=== PATIENT | male | born 1940 | race Caucasian/White ===

== ENCOUNTER 2020-12-08 18:09 | Observation (INO) ==
[2020-12-08 19:03] LABS: Basophils % 0.2 %; Hematocrit 42.8 % (37.5-50.1); Hemoglobin 13.7 g/dL (12.9-16.9); Immature Granulocytes % 0.5 % (0-4); Lymphocytes # 0.4 K/mcL (0.6-4.6); Lymphocytes % 3.3 %; Mean Corpuscular Hemoglobin 27.6 pg (28.0-33.3); Mean Corpuscular Volume 86.3 fL (83.0-100.0); Mean Platelet Volume 12.8 fL (9.4-12.4); Monocytes # 0.3 K/mcL (0.0-1.3); Monocytes % 1.9 %; Neutrophils # 12.5 K/mcL (1.6-8.9); Platelet Count 105 K/mcL (140-400); Red Blood Count 4.96 M/mcL (4.19-5.50); Red Cell Distribution Width 13.7 % (11.5-14.5); Segmented Neutrophils % 94.1 %; White Blood Count 13.3 K/mcL (4.3-11.1)
[2020-12-08 19:25] LABS: Alanine Aminotransferase 11 Units/L (7-52); Albumin 3.9 g/dL (3.5-5.7); Alkaline Phosphatase 83 Units/L (34-104); Aspartate Amino Transferase 21 Units/L (13-39); BUN/Creatinine Ratio 33 (6-26); Bilirubin,Direct 0.1 mg/dL (0.0-0.2); Bilirubin,Indirect 0.3 mg/dL (0.0-1.0); Bilirubin,Total 0.4 mg/dL (0.3-1.0); Blood Urea Nitrogen 44 mg/dL (8-23); Calcium 9.5 mg/dL (8.6-10.3); Carbon Dioxide 24 mEq/L (23-29); Chloride 103 mEq/L (98-107); Ethanol < 10 mg/dL (Less than 10); Glucose 103 mg/dL (70-105); Osmolality,Calculated 293 (280-300); Potassium 4.1 mEq/L (3.5-5.1); Sodium 136 mEq/L (136-145); Total Protein 7.9 g/dL (6.4-8.9); Troponin I 0.03 ng/mL (< 0.04); eGFR For African Americans > 60 (> 60); eGFR For Non-African Americans 51 (> 60)
[2020-12-08 20:54] LABS: Bilirubin,Urine Negative (Negative); Blood,Urine Negative (Negative); Clarity,Urine Clear (Clear); Color,Urine Light-Yellow (Yellow); Glucose,Urine (UA) Normal (Normal); Hyaline Casts,Urine Few per lpf (None Seen); Ketones,Urine Negative (Negative); Leukocyte Esterase,Urine Negative (Negative); Mucus,Urine Few per lpf (None-Few); Nitrite,Urine Negative (Negative); Protein,Urine 30 mg/dL (Neg-Trace); RBC,Urine 0-3 per hpf (0-3); Specific Gravity,Urine 1.025 (1.010-1.025); Squamous Epithelial Cell,Urine Few per hpf (None-Few); Urobilinogen,Urine Normal (Normal); WBC,Urine 0-3 per hpf (0-3)
[2020-12-08 20:56] LABS: Amphetamine Screen,Urine Negative ng/mL (Cutoff=1000); Barbiturate Screen,Urine Negative ng/mL (Cutoff=200); Benzodiazepines Screen,Urine Negative ng/mL (Cutoff=200); Cannabinoid Screen,Urine Negative ng/mL (Cutoff = 50); Cocaine Screen,Urine Negative ng/mL (Cutoff= 300); Opiate Screen,Urine Negative ng/mL (Cutoff=300); Phencyclidine Screen,Urine Negative ng/mL (Cutoff=25)
[2020-12-08] MEDS ORDERED: Ondansetron 4 MG/2 ML VIAL IVP PRN (21:51)
[2020-12-08] MEDS ORDERED: Naloxone 0.4 MG/ML INJ IVP PRN (21:51)
[2020-12-08] MEDS ORDERED: 0.9 % Sodium Chloride 1,000 ML IVC SCH (22:00)
[2020-12-09 03:49] LABS: Basophils % 0.1 %; Hematocrit 39.3 % (37.5-50.1); Hemoglobin 12.7 g/dL (12.9-16.9); Immature Granulocytes % 0.4 % (0-4); Immature Platelets 14.6 % (1.1-6.1); Lymphocytes # 0.6 K/mcL (0.6-4.6); Mean Corpuscular HGB Conc 32.3 g/dL (31.6-35.5); Mean Corpuscular Hemoglobin 27.1 pg (28.0-33.3); Mean Platelet Volume 12.7 fL (9.4-12.4); Monocytes # 0.2 K/mcL (0.0-1.3); Monocytes % 1.6 %; Neutrophils # 10.4 K/mcL (1.6-8.9); Platelet Count 92 K/mcL (140-400); Red Blood Count 4.68 M/mcL (4.19-5.50); Red Cell Distribution Width 13.7 % (11.5-14.5); Segmented Neutrophils % 92.9 %; White Blood Count 11.2 K/mcL (4.3-11.1)
[2020-12-09 03:51] LABS: Prothrombin Time 23.2 Seconds (9.4-12.1)
[2020-12-09 04:10] LABS: BUN/Creatinine Ratio 37 (6-26); Blood Urea Nitrogen 44 mg/dL (8-23); Calcium 9.4 mg/dL (8.6-10.3); Carbon Dioxide 21 mEq/L (23-29); Chloride 106 mEq/L (98-107); Glucose 117 mg/dL (70-105); Magnesium 1.8 mg/dL (1.6-2.6); Osmolality,Calculated 294 (280-300); Potassium 4.1 mEq/L (3.5-5.1); Sodium 136 mEq/L (136-145); eGFR For African Americans > 60 (> 60); eGFR For Non-African Americans 58 (> 60)
[2020-12-09] MEDS ORDERED: *HR* Heparin 5,000 UNIT/ML VIAL SQ SCH (06:00)
[2020-12-09] MEDS ORDERED: Warfarin perPT PO PRN (18:00)
[2020-12-09] MEDS ORDERED: *HR* Warfarin 2 MG TABLET PO ONE (18:00)
[2020-12-09] MEDS: Famotidine 20 MG TABLET PO SCH (18:36)
[2020-12-09] MEDS: levETIRAcetam 250 MG TABLET PO SCH (18:37)
[2020-12-09] MEDS: QUEtiapine Fumarate 25 MG TABLET PO SCH (20:48)
[2020-12-09] MEDS: Latanoprost 2.5 ML BOTTLE BOTH EYES SCH (20:50)
[2020-12-10 01:22] LABS: Basophils % 0.1 %
[2020-12-10 01:24] LABS: Hematocrit 38.8 % (37.5-50.1); Hemoglobin 12.5 g/dL (12.9-16.9); Immature Granulocytes % 0.6 % (0-4); Immature Platelets 13.6 % (1.1-6.1); Lymphocytes # 0.8 K/mcL (0.6-4.6); Lymphocytes % 7.1 %; Mean Corpuscular HGB Conc 32.2 g/dL (31.6-35.5); Mean Corpuscular Hemoglobin 27.8 pg (28.0-33.3); Mean Corpuscular Volume 86.2 fL (83.0-100.0); Mean Platelet Volume 13.1 fL (9.4-12.4); Monocytes # 0.6 K/mcL (0.0-1.3); Monocytes % 5.5 %; Neutrophils # 9.1 K/mcL (1.6-8.9); Red Cell Distribution Width 13.6 % (11.5-14.5); Segmented Neutrophils % 86.7 %; White Blood Count 10.5 K/mcL (4.3-11.1)
[2020-12-10 01:25] LABS: Platelet Count 75 K/mcL (140-400)
[2020-12-10 01:30] LABS: INR 1.8; Prothrombin Time 20.8 Seconds (9.4-12.1)
[2020-12-10 01:39] LABS: BUN/Creatinine Ratio 39 (6-26); Blood Urea Nitrogen 45 mg/dL (8-23); Calcium 9.2 mg/dL (8.6-10.3); Carbon Dioxide 25 mEq/L (23-29); Chloride 106 mEq/L (98-107); Glucose 102 mg/dL (70-105); Osmolality,Calculated 296 (280-300); Potassium 4.8 mEq/L (3.5-5.1); Sodium 137 mEq/L (136-145); eGFR For African Americans > 60 (> 60); eGFR For Non-African Americans > 60 (> 60)
[2020-12-10 02:04] LABS: Folate 8.2 ng/mL (3.0-16.0)
[2020-12-10 02:08] LABS: Vitamin B12 > 1500 pg/mL (250-1100)
[2020-12-10] MEDS: levETIRAcetam 250 MG TABLET PO SCH ×2 (06:14→18:24)
[2020-12-10] MEDS ORDERED: Cyanocobalamin (B-12) 1,000 MCG TABLET PO SCH (09:00)
[2020-12-10] MEDS: (Doxepin Hcl 10 MG) PO SCH ×2 (09:00→09:36)
[2020-12-10] MEDS: Famotidine 20 MG TABLET PO SCH ×2 (09:35→17:18)
[2020-12-10] MEDS: allopurinoL 300 MG TABLET PO SCH (09:36)
[2020-12-10] MEDS ORDERED: *HR* Warfarin 2.5 MG TABLET PO ONE (18:00)
[2020-12-10] MEDS: QUEtiapine Fumarate 25 MG TABLET PO SCH (21:22)
[2020-12-10] MEDS: Latanoprost 2.5 ML BOTTLE BOTH EYES SCH (21:23)
[2020-12-11] MEDS: levETIRAcetam 250 MG TABLET PO SCH ×2 (05:19→16:28)
[2020-12-11] MEDS: allopurinoL 300 MG TABLET PO SCH (08:42)
[2020-12-11] MEDS: Famotidine 20 MG TABLET PO SCH (08:42)
[2020-12-11 10:05] LABS: Hemoglobin 13.5 g/dL (12.9-16.9); Immature Granulocytes % 0.7 % (0-4); Mean Corpuscular HGB Conc 31.8 g/dL (31.6-35.5)
[2020-12-11 10:07] LABS: Basophils % 0.2 %; Eosinophils % 0.1 %; Hematocrit 42.4 % (37.5-50.1); Immature Platelets 14.6 % (1.1-6.1); Lymphocytes # 0.9 K/mcL (0.6-4.6); Lymphocytes % 11.2 %; Mean Corpuscular Hemoglobin 27.2 pg (28.0-33.3); Mean Corpuscular Volume 85.3 fL (83.0-100.0); Mean Platelet Volume 13.2 fL (9.4-12.4); Monocytes # 0.5 K/mcL (0.0-1.3); Monocytes % 6.6 %; Neutrophils # 6.6 K/mcL (1.6-8.9); Platelet Count 87 K/mcL (140-400); Red Blood Count 4.97 M/mcL (4.19-5.50); Red Cell Distribution Width 13.8 % (11.5-14.5); Segmented Neutrophils % 81.2 %; White Blood Count 8.1 K/mcL (4.3-11.1)
[2020-12-11 10:16] LABS: INR 1.9; Prothrombin Time 21.1 Seconds (9.4-12.1)
[2020-12-11 10:23] LABS: BUN/Creatinine Ratio 46 (6-26); Blood Urea Nitrogen 49 mg/dL (8-23); Calcium 9.6 mg/dL (8.6-10.3); Carbon Dioxide 27 mEq/L (23-29); Chloride 105 mEq/L (98-107); Glucose 95 mg/dL (70-105); Osmolality,Calculated 301 (280-300); Potassium 3.8 mEq/L (3.5-5.1); Sodium 139 mEq/L (136-145); eGFR For African Americans > 60 (> 60); eGFR For Non-African Americans > 60 (> 60)
[2020-12-11] MEDS: Thiamine (B-1) 100 MG TABLET PO SCH (13:17)
[2020-12-11] MEDS: (Doxepin Hcl 10 MG) PO SCH (16:24)
[2020-12-11] MEDS ORDERED: *HR* Warfarin 4 MG TABLET PO ONE (18:00)
[2020-12-11] MEDS: QUEtiapine Fumarate 25 MG TABLET PO SCH (19:56)
[2020-12-11] MEDS: Latanoprost 2.5 ML BOTTLE BOTH EYES SCH (20:34)
[2020-12-12] MEDS: levETIRAcetam 250 MG TABLET PO SCH (05:57)
[2020-12-12 06:08] LABS: Basophils % 0.1 %; Mean Corpuscular HGB Conc 31.8 g/dL (31.6-35.5); Red Blood Count 4.64 M/mcL (4.19-5.50); White Blood Count 6.8 K/mcL (4.3-11.1)
[2020-12-12 06:10] LABS: Eosinophils # 0.1 K/mcL (0.0-0.6); Hematocrit 39.6 % (37.5-50.1); Hemoglobin 12.6 g/dL (12.9-16.9); Immature Granulocytes % 0.9 % (0-4); Immature Platelets 13.4 % (1.1-6.1); Lymphocytes # 0.9 K/mcL (0.6-4.6); Lymphocytes % 13.6 %; Mean Corpuscular Hemoglobin 27.2 pg (28.0-33.3); Mean Corpuscular Volume 85.3 fL (83.0-100.0); Mean Platelet Volume 12.5 fL (9.4-12.4); Monocytes # 0.6 K/mcL (0.0-1.3); Monocytes % 8.8 %; Neutrophils # 5.1 K/mcL (1.6-8.9); Red Cell Distribution Width 13.8 % (11.5-14.5); Segmented Neutrophils % 75.6 %
[2020-12-12 06:17] LABS: Prothrombin Time 22.2 Seconds (9.4-12.1)
[2020-12-12 06:18] LABS: Platelet Count 92 K/mcL (140-400)
[2020-12-12 06:33] VITALS: BP 133/68
[2020-12-12 06:40] LABS: BUN/Creatinine Ratio 42 (6-26); Blood Urea Nitrogen 43 mg/dL (8-23); Calcium 9.3 mg/dL (8.6-10.3); Carbon Dioxide 23 mEq/L (23-29); Chloride 107 mEq/L (98-107); Glucose 106 mg/dL (70-105); Osmolality,Calculated 295 (280-300); Sodium 137 mEq/L (136-145); eGFR For African Americans > 60 (> 60); eGFR For Non-African Americans > 60 (> 60)
[2020-12-12] MEDS ORDERED: Famotidine 20 MG TABLET PO SCH (09:00)
[2020-12-12] MEDS: allopurinoL 300 MG TABLET PO SCH (10:28)
[2020-12-12] MEDS: Thiamine (B-1) 100 MG TABLET PO SCH (10:28)
== END 2020-12-12 11:50 | disposition home health service (06) ==
LOC: EMEROOARM 18:09 → 2NENU 18:09 → SUATTDRO 21:30 → 2NENU 22:11
PROVIDERS: ADMIT Student in an Organized Health Care Education/Training Program; ATTEND Family Medicine